=== PATIENT | male | born 1985 | race Hispanic/Latino ===

== ENCOUNTER 2019-05-03 13:10 | Emergency (ER) | payer SELFPAY ==
--- NOTE | 2019-05-03 14:07 | RAD ---
RADIOGRAPH CHEST 1 VIEW: DATE: 05/03/2019 HISTORY: 33-year-old male with chest pain FINDINGS: There are no airspace densities, pulmonary edema, pneumothorax, or cardiomegaly. The lateral costophr enic angles are sharp. IMPRESSION: No acute cardiopulmonary findings.
[2019-05-03 14:15] LABS: #Basophils 0.1 thou/uL (0.0-0.2); #Eosinphils 0.2 thou/uL (0.0-0.7); #Lymphocytes 1.1 thou/uL (1.20-3.40); #Monocytes 0.4 thou/uL (0.11-0.59); #Neutrophils 6.7 thou/uL (1.40-6.50); %Basophils 0.7 % (0.0-1.0); %Eosinophils 2.3 % (0.0-10.0); %Lymphocytes 12.9 % (21.0-51.0); %Monocytes 4.7 % (0.0-10.0); %Neutrophils 79.5 % (42.0-75.0); Hemoglobin 14.4 g/dL (14.0-18.0); Mean Corpuscular HGB CONC 34.2 g/dL (32.0-36.0); Mean Corpuscular Hemoglobin 27.9 pg (27.0-31.0); Mean Corpuscular Volume 81.5 fL (78.0-98.0); Mean Platelet Volume 9.4 fL (7.4-10.4); Platelet Count 190 thou/uL (130-400); RBC Distribution Width 12.6 % (11.5-14.5); Red Blood Cell (RBC) Count 5.16 mill/uL (4.70-6.10); White Blood Cell (WBC) Count 8.4 thou/uL (4.8-10.8)
[2019-05-03 14:40] LABS: ALT (SGPT) 36 U/L (8-55); AST (SGOT) 23 U/L (5-34); Albumin 4.4 g/dL (3.5-5.0); Alkaline Phosphatase 86 U/L (40-110); Anion Gap 12 mmol/L (10-20); BUN (Urea Nitrogen) 12 mg/dL (8.9-20.6); Bilirubin, Total 0.4 mg/dL (0.2-1.2); Calc. Creatinine Clearance 0 mL/min (70-130); Calcium 9.2 mg/dL (7.8-10.44); Carbon Dioxide 27 mmol/L (22-29); Chloride 106 mmol/L (98-107); Estimated GFR-MDRD 89; Globulin 2.5 g/dL (2.4-3.5); Glucose 92 mg/dL (70-105); Lipase 17 U/L (8-78); Potassium 4.2 mmol/L (3.5-5.1); Protein, Total 6.9 g/dL (6.0-8.3); Sodium 141 mmol/L (136-145)
== END 2019-05-03 15:14 | disposition home or self-care (01) ==
LOC: ERS 13:10
DX: R07.89 Other chest pain (principal); Z87.891 Personal history of nicotine dependence
CPT/HCPCS: 36415; 71045; 80053; 83690; 84484; 85025; 93005

== ENCOUNTER 2021-07-06 10:38 | Inpatient (IN) | payer OTHER, SELFPAY ==
[2021-07-06] MEDS ORDERED: Morphine 4 MG/ML VIAL ONE (11:22)
[2021-07-06] MEDS ORDERED: Fentanyl 100 MCG/2 ML VIAL ONE ×3 (13:24→19:41)
[2021-07-06] MEDS ORDERED: Ondansetron PF 4 MG/2 ML Vial ONE (14:50)
[2021-07-06] MEDS ORDERED: HYDROcodone/Acetaminophen 5/325 mg Tablet PO PRN (17:27)
[2021-07-06] MEDS ORDERED: TETANUS AND DIPHTHERIA TOX/PF 0.5 ML DISP.SYRIN IM SCH (17:30)
[2021-07-06 18:24] LABS: #Lymphocytes 0.8 thou/uL (1.20-3.40); #Monocytes 0.6 thou/uL (0.11-0.59); #Neutrophils 12.1 thou/uL (1.40-6.50); %Basophils 0.2 % (0.0-1.0); %Eosinophils 0.3 % (0.0-10.0); %Monocytes 4.5 % (0.0-10.0); Hemoglobin 14.1 g/dL (14.0-18.0); Mean Corpuscular HGB CONC 34.3 g/dL (32.0-36.0); Mean Corpuscular Hemoglobin 28.4 pg (27.0-31.0); Mean Corpuscular Volume 82.8 fL (78.0-98.0); Mean Platelet Volume 9.4 fL (7.4-10.4); Platelet Count 188 thou/uL (130-400); RBC Distribution Width 12.6 % (11.5-14.5); Red Blood Cell (RBC) Count 4.95 mill/uL (4.70-6.10); White Blood Cell (WBC) Count 13.6 thou/uL (4.8-10.8)
[2021-07-06] MEDS ORDERED: HYDROcodone/Acetaminophen 10/325 mg Tablet ONE (18:53)
[2021-07-06] MEDS ORDERED: Boostrix 0.5 ML (Tdap) VIAL ONE (18:53)
[2021-07-06] MEDS: HYDROcodone/Acetaminophen 5/325 mg Tablet PO PRN ×2 (18:59→23:12)
[2021-07-06] MEDS: Sodium Chloride 0.9% 1,000 ML IV SCH (19:30)
[2021-07-06] MEDS: Fentanyl 100 MCG/2 ML VIAL SLOW IVP PRN (19:50)
[2021-07-06 21:18] VITALS: BMI 39.9
[2021-07-07] MEDS: Fentanyl 100 MCG/2 ML VIAL SLOW IVP PRN ×4 (00:23→21:24)
[2021-07-07] MEDS: Ondansetron PF 4 MG/2 ML Vial IVP PRN ×2 (00:32→14:23)
[2021-07-07] MEDS: Sodium Chloride 0.9% 1,000 ML IV SCH ×3 (03:30→23:30)
[2021-07-07] MEDS: HYDROcodone/Acetaminophen 5/325 mg Tablet PO PRN ×4 (04:39→20:49)
[2021-07-07 07:29] LABS: SARS-CoV-2 PCR by NAA Not Detected (NotDetected)
[2021-07-07] MEDS ORDERED: Enoxaparin Sodium 40 MG/0.4 ML SYRINGE SC SCH (09:00)
[2021-07-07] MEDS ORDERED: Enoxaparin Sodium 30 MG/0.3 ML SYRINGE SC SCH (12:15)
[2021-07-08] MEDS: HYDROcodone/Acetaminophen 5/325 mg Tablet PO PRN (01:56)
[2021-07-08] MEDS ORDERED: Fentanyl 100 MCG/2 ML VIAL ONE ×4 (08:25→16:04)
[2021-07-08] MEDS ORDERED: Midazolam HCl 2 mg/2 ml Vial ONE (08:25)
[2021-07-08] MEDS: Sodium Chloride 0.9% 1,000 ML IV SCH ×2 (09:30→19:30)
[2021-07-08] MEDS ORDERED: ceFAZolin 2 GM/Dextrose 50 ML IVPB ONE (10:42)
[2021-07-08] MEDS ORDERED: Fentanyl 100 MCG/2 ML VIAL SLOW IVP PRN (10:46)
[2021-07-08] MEDS ORDERED: PROPOFOL 200 MG/20 ML VIAL ONE (10:51)
[2021-07-08] MEDS ORDERED: Ondansetron PF 4 MG/2 ML Vial ONE (10:51)
[2021-07-08] MEDS ORDERED: Bupivacaine HCl 0.5%/Epinephrine 1:200,000/PF 30 ml Vial ONE (10:51)
[2021-07-08] MEDS ORDERED: Glycopyrrolate 0.2 MG/ML 5 ML SYRINGE ONE (10:51)
[2021-07-08] MEDS ORDERED: PHENYLEPHRINE-NS 100 MCG/ML 10 ML SYRINGE ONE (10:51)
[2021-07-08] MEDS ORDERED: Lidocaine 1% PF 5 ML VIAL ONE (10:51)
[2021-07-08] MEDS ORDERED: Dexamethasone 20 MG/5 ML VIAL ONE (10:51)
[2021-07-08] MEDS ORDERED: Rocuronium Bromide 10 MG/ML (10ML VIAL) ONE (10:51)
[2021-07-08] MEDS ORDERED: Ropivacaine 0.2% 550 ML 550 ML NERVE BLCK SCH (11:00)
[2021-07-08] MEDS ORDERED: traMADol HCl 50 MG TAB PO PRN ×2 (11:00)
[2021-07-08] MEDS ORDERED: Zolpidem Tartrate 5 MG TAB PO PRN (11:00)
[2021-07-08] MEDS ORDERED: Ondansetron PF 4 MG/2 ML Vial IVP PRN (11:00)
[2021-07-08] MEDS ORDERED: Promethazine HCl 25 MG/ML VIAL IM PRN (11:00)
[2021-07-08] MEDS ORDERED: HYDROmorphone 2 MG/ML VIAL ONE (14:47)
[2021-07-08] MEDS ORDERED: Meperidine HCl/PF 25 MG/ML VIAL ONE (16:04)
[2021-07-08] MEDS: Ketorolac Tromethamine 30 MG/ML VIAL IVP SCH ×2 (18:08→18:35)
[2021-07-08] MEDS: Warfarin Sodium 2.5 MG TAB PO SCH (18:36)
[2021-07-08 20:24] LABS: Anion Gap 10 mmol/L (10-20); BUN (Urea Nitrogen) 11 mg/dL (8.9-20.6); Calc. Creatinine Clearance 239 mL/min (70-130); Calcium 8.6 mg/dL (7.8-10.44); Carbon Dioxide 25 mmol/L (22-29); Chloride 104 mmol/L (98-107); Glucose 127 mg/dL (70-105); Potassium 4.2 mmol/L (3.5-5.1); Sodium 135 mmol/L (136-145)
[2021-07-08] MEDS: ceFAZolin 2 GM/Dextrose 50 ML 2 GM in Premix Bag 1 BAG IVPB SCH (21:51)
[2021-07-09] MEDS: VANCOMYCIN 1.75 GM/350 ML BAG 1.75 GM in Premix Bag 1 BAG IVPB SCH ×2 (00:22→08:08)
[2021-07-09] MEDS: Ketorolac Tromethamine 30 MG/ML VIAL IVP SCH ×5 (00:23→23:41)
[2021-07-09] MEDS: Sodium Chloride 0.9% 1,000 ML IV SCH ×2 (05:00→16:45)
[2021-07-09] MEDS: ceFAZolin 2 GM/Dextrose 50 ML 2 GM in Premix Bag 1 BAG IVPB SCH ×2 (05:44→14:13)
[2021-07-09 08:08] LABS: #Lymphocytes 0.8 thou/uL (1.20-3.40); #Monocytes 0.7 thou/uL (0.11-0.59); #Neutrophils 9.1 thou/uL (1.40-6.50); %Basophils 0.2 % (0.0-1.0); %Eosinophils 0.3 % (0.0-10.0); %Lymphocytes 7.3 % (21.0-51.0); %Monocytes 6.2 % (0.0-10.0); Hemoglobin 12.1 g/dL (14.0-18.0); Mean Corpuscular HGB CONC 34.5 g/dL (32.0-36.0); Mean Corpuscular Hemoglobin 28.8 pg (27.0-31.0); Mean Corpuscular Volume 83.5 fL (78.0-98.0); Mean Platelet Volume 9.2 fL (7.4-10.4); Platelet Count 153 thou/uL (130-400); RBC Distribution Width 12.5 % (11.5-14.5); Red Blood Cell (RBC) Count 4.19 mill/uL (4.70-6.10); White Blood Cell (WBC) Count 10.6 thou/uL (4.8-10.8)
[2021-07-09 08:21] LABS: INR-International Normal Ratio 1.2; Prothrombin Time 14.9 sec (12.0-14.7)
[2021-07-09 08:30] LABS: Anion Gap 13 mmol/L (10-20); BUN (Urea Nitrogen) 12 mg/dL (8.9-20.6); Calc. Creatinine Clearance 239 mL/min (70-130); Calcium 8.2 mg/dL (7.8-10.44); Carbon Dioxide 21 mmol/L (22-29); Chloride 107 mmol/L (98-107); Glucose 115 mg/dL (70-105); Potassium 3.9 mmol/L (3.5-5.1); Sodium 137 mmol/L (136-145)
[2021-07-09] MEDS: HYDROcodone/Acetaminophen 10/325 mg Tablet PO PRN ×2 (09:52→17:58)
[2021-07-09] MEDS ORDERED: Magnevist 469MG/ML 20 ML VIAL ONE (14:22)
[2021-07-09] MEDS: Warfarin Sodium 2.5 MG TAB PO SCH (18:00)
[2021-07-10] MEDS: Sodium Chloride 0.9% 1,000 ML IV SCH ×2 (01:41→12:14)
[2021-07-10 05:29] LABS: INR-International Normal Ratio 1.1
[2021-07-10] MEDS: Ketorolac Tromethamine 30 MG/ML VIAL IVP SCH (06:01)
[2021-07-10] MEDS: HYDROcodone/Acetaminophen 10/325 mg Tablet PO PRN ×3 (08:29→17:38)
[2021-07-10 17:31] VITALS: BP 141/96; TEMP 98.6
[2021-07-10] MEDS: Warfarin Sodium 2.5 MG TAB PO SCH (17:38)
== END 2021-07-10 17:50 | disposition home or self-care (01) | DRG 494 ==
LOC: ERS 10:38 → ERHOLD 17:27 → SURG A 20:55
PROVIDERS: ADMIT Orthopaedic Surgery; ATTEND Orthopaedic Surgery
PROC: 0QSH04Z Reposition Left Tibia with Internal Fixation Device, Open Approach (ICD-10-PCS; principal; 2021-07-08)
PROC: 0LUR0JZ Supplement Left Knee Tendon with Synthetic Substitute, Open Approach (ICD-10-PCS; 2021-07-08)
DX: S82.142A Displaced bicondylar fracture of left tibia, initial encounter for closed fracture (principal); W18.30XA Fall on same level, unspecified, initial encounter; S83.242A Other tear of medial meniscus, current injury, left knee, initial encounter; S83.282A Other tear of lateral meniscus, current injury, left knee, initial encounter; Z87.891 Personal history of nicotine dependence; Z20.822 Contact with and (suspected) exposure to COVID-19; S83.8X2A Sprain of other specified parts of left knee, initial encounter
CPT/HCPCS: 36415; 36416; 76000; 80048; 85025; 85610; 90471; 90715; 96374; 96375; 96376; A4306; A9579; C1713; G0390; J0690; J1100; J1170; J1650; J1885; J2175; J2250; J2270; J2405; J2704; J2795; J3010; J3370; J7050; U0003; U0005

== ENCOUNTER 2022-07-30 11:01 | Emergency (ER) | payer BC ==
[2022-07-30 11:32] LABS: #Eosinphils 0.1 thou/uL (0.0-0.7); #Lymphocytes 1.1 thou/uL (1.20-3.40); #Monocytes 0.7 thou/uL (0.11-0.59); #Neutrophils 9.4 thou/uL (1.40-6.50); %Basophils 0.4 % (0.0-1.0); %Eosinophils 1.3 % (0.0-10.0); %Lymphocytes 9.3 % (21.0-51.0); %Monocytes 6.3 % (0.0-10.0); %Neutrophils 82.6 % (42.0-75.0); Hemoglobin 14.7 g/dL (14.0-18.0); Mean Corpuscular HGB CONC 33.2 g/dL (32.0-36.0); Mean Corpuscular Volume 81.3 fl (78.0-98.0); Mean Platelet Volume 10.2 fL (7.4-10.4); Platelet Count 169 10x3/uL (130-400); RBC Distribution Width 12.7 % (11.5-14.5); Red Blood Cell (RBC) Count 5.45 mill/uL (4.70-6.10); White Blood Cell (WBC) Count 11.4 10x3/uL (4.8-10.8)
[2022-07-30 11:55] LABS: ALT (SGPT) 35 U/L (8-55); AST (SGOT) 18 U/L (5-34); Alkaline Phosphatase 91 U/L (40-110); Anion Gap 11 mmol/L (10-20); BUN (Urea Nitrogen) 11 mg/dL (8.9-20.6); Bilirubin, Total 0.9 mg/dL (0.2-1.2); Calc. Creatinine Clearance 0 mL/min (70-130); Calcium 9.4 mg/dL (7.8-10.44); Carbon Dioxide 24 mmol/L (22-29); Chloride 105 mmol/L (98-107); Estimated GFR 111; Glucose 106 mg/dL (70-105); Lipase 34 U/L (8-78); Sodium 136 mmol/L (136-145)
[2022-07-30] MEDS ORDERED: Aspirin 325 MG TAB ONE (12:24)
[2022-07-30] MEDS ORDERED: Nitroglycerin 0.4 MG TAB 1 EACH ONE (12:24)
[2022-07-30] MEDS ORDERED: Lidocaine Viscous Sol 2% 15 ml UD Cup ONE (12:55)
[2022-07-30] MEDS ORDERED: Mag-Al 1200 mg/1200 mg/30 ML UDCUP ONE (12:55)
[2022-07-30] MEDS ORDERED: Pantoprazole 40 MG VIAL ONE (14:46)
== END 2022-07-30 17:23 | disposition home or self-care (01) ==
LOC: ERS 11:01
DX: R07.2 Precordial pain (principal); F17.290 Nicotine dependence, other tobacco product, uncomplicated
CPT/HCPCS: 36415; 71045; 80053; 83690; 84484; 85025; 93005; 96374; C9113